=== PATIENT | male | born 2000 | race Caucasian/White ===

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

== ENCOUNTER 2021-07-12 10:04 | Emergency (ER) | payer OTHER, SELFPAY ==
[2021-07-12 10:05] VITALS: BP 120/81; PULSE 121; RESP 16; TEMP 36.9; O2SAT 98; BMI 27.5
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
--- NOTE | 2021-07-12 10:28 | CM.ED ---
SOCIAL WORK Received call from Brittany Ernst with [facility]. Informed patient is suicidal with multiple plans, intent, and means. Patient requiring hospitalization. Staff and Dr. Lauren Lamas, FLEET OPERATIONS MANAGER, SUPERVISOR FILTRATION
[2021-07-12 10:45] LABS: Absolute Lymphocyte Count 1.46 X10^3/uL (0.83-4.51); Basophil# 0.07 X10^3/uL; Basophil% 0.5 % (0-1); Eosinophil# 0.18 X10^3/uL; Eosinophils% 1.2 % (0-5); Hematocrit 49.1 % (40-54); Lymphocyte # 1.46 X10^3/ul (0.83-4.51); Lymphocyte % 10.1 % (19-41); Mean Corp Hgb Conc 36.9 g/dL (32-36); Mean Corpuscular Volume 84.2 fL (80-94); Mean Platelet Vol. 8.9 fl (6.2-12.0); Monocyte# 0.74 X10^3/uL; Monocyte% 5.1 % (0-10); NRBC Flagged by Analyzer 0 % (0-5); Neutrophil # 12.01 X10^3/uL (2.7-7.7); Neutrophil % 82.7 % (47-70); Platelet Count 306 K/mm3 (150-450); RBC Distribution Width CV 11.9 % (11.6-14.6); RBC Distribution Width SD 35.5 fl (35.1-43.9); Red Blood Count 5.83 M/mm3 (4.6-6.2); White Blood Count 14.5 K/mm3 (4.4-11.0)
[2021-07-12 11:00] LABS: Amphetamine Urine VISTA NEGATIVE (<1000 ng/mL); Barbiturate Urine VISTA NEGATIVE (< 200 ng/mL); Benzodiazepine Urine VISTA NEGATIVE (< 200 ng/mL); Cocaine Urine VISTA NEGATIVE (< 300 ng/mL); Ecstacy Urine VISTA NEGATIVE (< 500 ng/mL); Methadone Urine VISTA NEGATIVE (< 300 ng/mL); PCP Urine VISTA NEGATIVE (< 25 ng/mL); THC Urine VISTA NEGATIVE (< 50 ng/mL); Vista UDS pH Range 5
[2021-07-12 11:01] LABS: Hemoglobin 18.1 g/dL (13.0-16.5)
[2021-07-12 11:05] VITALS: RESP 16
[2021-07-12 11:08] LABS: Anion Gap 7 (5-15); BUN 9 mg/dL (7-18); BUN/Creat Ratio 8.3 RATIO (10-20); Calcium,Total 9.1 mg/dL (8.5-10.1); Chloride 105 mmol/L (98-107); Creatinine, Serum 1.09 mg/dL (0.70-1.30); EST Glomerular Filtration Rate 91 mL/min (>60); Est Glom Filt Rate - Afr Amer 111 mL/min (>60); Estimated Creatinine Clearance 118.65 ml/min; Glucose 130 mg/dL (74-106); Potassium 3.5 mmol/L (3.5-5.1); Sodium Level 138 mmol/L (136-145)
--- NOTE | 2021-07-12 11:11 | EKG12_ITS ---
Test Reason : MENTAL CLEARANCE Blood Pressure : / mmHG Vent. Rate : 066 BPM Atrial Rate : 066 BPM P-R Int : 118 ms QRS Dur : 076 ms QT Int : 360 ms P-R-T Axes : 030 016 017 degrees QTc Int : 377 ms Normal sinus rhythm Nonspecific T wave abnormality Abnormal ECG Confirmed by GINGER BUCK, REINALDO ([id number]), newspaper managing editor AALIYAH GONZALEZ ([id number]) on 07/13/2021 11:35:05 AM Referred By: JA Confirmed By:REINALDO MILES MD
[2021-07-12 11:21] LABS: Alcohol, Blood (Medical)-Serum < 3.0 mg/dL
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
--- NOTE | 2021-07-12 12:23 | CM.ED ---
Referral faxed and called to [facility] and [facility]. Pending review at this time. Cyrus Lamas, MOTOR RUNNER, WIND TURBINE MACHINIST
--- NOTE | 2021-07-12 13:38 | CM.ED ---
Patient accepted to [facility] Unit by Dr. Peterson. Nurse to call report to [phone]. Call to [facility], ETA 90 minutes. Patient and staff updated. [place] on chart. Plan: [place] Call to [facility] [place] to updated placement has been obtained. Cyrus Lamas MSW, PECAN HULLER
[2021-07-12 14:00] VITALS: PULSE 110; RESP 18
--- NOTE | 2021-07-12 15:44 | ED.RN ---
called [facility] to ask for update on transport, [facility] stated it would be an additional 30 minutes at 15:42. Original ETA was 15:20, new ETA is 16:15.
[2021-07-12 16:43] VITALS: BP 110/76; PULSE 108; RESP 16
--- NOTE | 2021-07-12 16:52 | ED.RN ---
[facility] arrival time 16:45
[2021-07-14 09:44] LABS: Pathologist Review Reviewed
== END 2021-07-12 16:55 ==
PROVIDERS: Emergency Provider Emergency Medicine; PCP Pediatrics
DX: F32.A Depression, unspecified (principal); R45.851 Suicidal ideations; F41.9 Anxiety disorder, unspecified; Z79.899 Other long term (current) drug therapy
CPT/HCPCS: 80048; 80307; 82077; 85025; 87426; 93005; 99284